=== PATIENT | female | born 1945 | race Caucasian/White ===

== ENCOUNTER 2023-07-02 11:28 | Inpatient (IN) | payer OTHER, MEDICAID ==
[~2023-07-02] VITALS: Ht 157.5 cm; Wt 59.0 kg
[2023-07-02 11:35] VITALS: BP_SYST 92; PULSE 58; RESP 18; O2SAT 100
[2023-07-02 12:05] LABS: BASOPHILS # (AUTO) 0.1 K/uL (0.0-0.2); BASOPHILS % (AUTO) 0.7 % (0.0-2.0); EOSINOPHILS % (AUTO) 0.6 % (0.0-4.0); HEMATOCRIT 26.9 % (36-48); HEMOGLOBIN 9.2 g/dL (12.0-16.0); LYMPHOCYTES % (AUTO) 25.6 % (20.5-51.5); MEAN CORPUSCULAR HEMOGLOBIN 31 pg (27-31); MEAN CORPUSCULAR HGB CONC 34 % (32-36); MEAN CORPUSCULAR VOLUME 92 fL (79.0-98.0); MONOCYTES # (AUTO) 0.6 K/uL (0.0-1.0); MONOCYTES % (AUTO) 7.4 % (1.7-9.3); NEUTROPHILS # (AUTO) 5.2 K/uL (1.8-7.7); NEUTROPHILS % (AUTO) 65.7 % (40.0-70.0); PLATELET COUNT (AUTO) 210 K/uL (130-430); RED BLOOD CELL COUNT(AUTO) 2.92 MIL/uL (4.2-6.2); RED CELL DISTRIBUTION WIDTH 13.5 % (9.0-15.0)
[2023-07-02 12:25] LABS: ALANINE AMINOTRANSFERASE 18 U/L (12-78); ALBUMIN 2.3 g/dL (3.4-4.8); ANION GAP 11 (5-15); ASPARTATE AMINOTRANSFERASE 18 U/L (10-37); BILIRUBIN,DIRECT 0.2 mg/dL (0.0-0.3); CALCIUM 7.8 mg/dL (8.4-11.0); CARBON DIOXIDE 22 mmol/L (23-29); CHLORIDE 103 mmol/L (98-107); CREATININE 2.42 mg/dL (0.55-1.30); POTASSIUM 4.8 mmol/L (3.5-5.1); SODIUM SERUM 136 mmol/L (136-145); TOTAL BILIRUBIN 0.6 mg/dL (0.0-1.0); TOTAL PROTEIN, SERUM 5.4 g/dL (6.4-8.3); UREA NITROGEN, BLOOD 53 mg/dL (8-21)
[2023-07-02 12:29] LABS: GLUCOSE 504 mg/dL (74-106)
[2023-07-02] MEDS: INSULIN REGULAR, HUMAN 10 UNITS/0.1 ML, 3 ML VIAL IVP ONE (13:03)
[2023-07-02] MEDS: NACL 0.9% 1,000 ML IV ONE (13:58)
[2023-07-02] MEDS ORDERED: REPA2TAB12 PO (15:30)
[2023-07-02] MEDS ORDERED: VERA240C2 PO (15:30)
[2023-07-02] MEDS ORDERED: POTA8TAB58 PO (15:30)
[2023-07-02] MEDS ORDERED: FURO40TA5 PO (15:30)
[2023-07-02] MEDS ORDERED: FAMO20TA8 PO (15:51)
[2023-07-02] MEDS ORDERED: APIX5TAB PO (15:51)
[2023-07-02] MEDS ORDERED: ERGO500020 PO (15:51)
[2023-07-02] MEDS ORDERED: ROSU5TAB13 PO (15:51)
[2023-07-02] MEDS ORDERED: FERR325T30 PO (15:51)
[2023-07-02] MEDS ORDERED: LEVO150C4 PO (15:51)
[2023-07-02] MEDS ORDERED: ACET1TAB93 PO (15:51)
[2023-07-02] MEDS ORDERED: PREG75CA PO (15:51)
[2023-07-02] MEDS ORDERED: METF1000 PO (15:51)
[2023-07-02] MEDS ORDERED: ENAL20TA70 PO (15:51)
[2023-07-02] MEDS ORDERED: MUPIROCIN 2% TOPICAL OINTMENT 22 GM NS PRN (16:00)
[2023-07-02] MEDS ORDERED: ONDANSETRON HCL 4 MG/2 ML VIAL IVP PRN (16:00)
[2023-07-02] MEDS ORDERED: MORPHINE 2 MG/ML INJ. SYRINGE IVP PRN ×2 (16:00)
[2023-07-02] MEDS ORDERED: INSULIN LISPRO SLIDING SCALE 100 UNITS/ML, 3 ML VIAL (humaLOG) SUBCUT PRN (16:00)
[2023-07-02] MEDS ORDERED: DEXTROSE 50% JECT 50 ML DISP.SYRIN IVP PRN (16:00)
[2023-07-02] MEDS ORDERED: MAGNESIUM SULFATE 50 ML IV PRN (16:00)
[2023-07-02] MEDS ORDERED: DOCUSATE SODIUM 100 MG CAPSULE PO PRN (16:00)
[2023-07-02] MEDS ORDERED: ZOLPIDEM TARTRATE 5 MG TABLET PO PRN (16:00)
[2023-07-02] MEDS ORDERED: LORazepam 2 MG/ML VIAL IVP PRN (16:00)
[2023-07-02] MEDS ORDERED: INSULIN REGULAR, HUMAN 100 UNITS/ML, 3 ML VIAL (humuLIN R) SUBCUT PRN (16:00)
[2023-07-02] MEDS: FUROSEMIDE 20 MG TABLET PO ONE (16:15)
[2023-07-02] MEDS: NACL 0.9% 1,000 ML IV SCH ×2 (16:27→20:29)
[2023-07-02] MEDS ORDERED: cefTRIAXone 1 GM VIAL IM ONE (18:00)
[2023-07-02 18:02] LABS: ABG O2 SAT% ESTIMATE 98.8 % (94.0-100.0); BLOOD GAS BASE EXCESS -2.4 mmol/L (-3.0-3.0); BLOOD GAS HCO3 22.1 mmol/L (21.0-27.0); BLOOD GAS PCO2 37.4 mmHg (35.0-45.0); BLOOD GAS PH 7.389 (7.350-7.450); BLOOD GAS PO2 144.4 mmHg (75.0-100.0)
[2023-07-02] MEDS ORDERED: ACETAMINOPHEN 500 MG TABLET PO PRN ×3 (18:45)
[2023-07-02] MEDS: NALOXONE HCL 0.4 MG/ML AMP (NARCAN) IVP ONE ×2 (18:51→19:08)
[2023-07-02] MEDS ORDERED: cefTRIAXone 1 GM VIAL ONE (19:11)
[2023-07-02] MEDS: CEFTRIAXONE SOD 1 GM/ D5W 50 ML IV ONE (19:14)
[2023-07-02 20:00] LABS: BILIRUBIN,URINE NEGATIVE (NEGATIVE); BLOOD, URINE NEGATIVE (NEGATIVE); COLOR,URINE YELLOW (YELLOW); GLUCOSE,URINE 3+ (NEGATIVE); KETONES,URINE NEGATIVE (NEGATIVE); LEUKOCYTE ESTERASE ,URINE 2+ (NEGATIVE); NITRITE, URINE NEGATIVE (NEGATIVE); PROTEIN URINE NEGATIVE (NEGATIVE); UROBILINOGEN,URINE 0.2 (0.2-1.0)
[2023-07-02 20:08] LABS: CLARITY/URINE HAZY (CLEAR)
[2023-07-02 20:09] LABS: BACTERIA,URINE MODERATE /HPF (None Seen); RBC,URINE 0-3 /HPF (0-3); WBC,URINE 20-50 /HPF (0-3)
[2023-07-02] MEDS: INSULIN GLARGINE 100 UNITS/ML, 10 ML VIAL SUBCUT SCH (20:56)
[2023-07-02] MEDS: PREGABALIN 75 MG CAPSULE (LYRICA) PO SCH (20:58)
[2023-07-03] MEDS: LEVOTHYROXINE SODIUM 0.15 MG TABLET PO SCH (06:40)
[2023-07-03] MEDS: LEVOTHYROXINE SODIUM 0.15 MG TABLET ONE (07:10)
[2023-07-03] MEDS: APIXABAN 2.5 MG TABLET PO SCH (08:52)
[2023-07-03] MEDS: FUROSEMIDE 40 MG TABLET PO SCH (08:53)
[2023-07-03] MEDS: lisinopriL 20 MG TABLET PO SCH (08:53)
[2023-07-03] MEDS: ATORVASTATIN 20 MG TABLET PO SCH (08:53)
[2023-07-03] MEDS ORDERED: ROSUVASTATIN CALCIUM 5 MG/TAB (CRESTOR) PO SCH (09:00)
[2023-07-03] MEDS ORDERED: NON-FORMULARY MEDICATION (Levothyroxine Sodium (Levothyroxine) 1 TAB) PO SCH (09:00)
[2023-07-03] MEDS ORDERED: NON-FORMULARY MEDICATION (Apixaban (Eliquis) 1 TAB) PO SCH (09:00)
[2023-07-03] MEDS ORDERED: ENALAPRIL MALEATE Non-Formular 5 MG TABLET PO SCH (09:00)
[2023-07-03] MEDS: INSULIN REGULAR, HUMAN 100 UNITS/ML, 3 ML VIAL (humuLIN R) SUBCUT PRN (12:15)
[2023-07-03] MEDS ORDERED: NALOXONE HCL 0.4 MG/ML AMP (NARCAN) IVP PRN (15:15)
[2023-07-03] MEDS ORDERED: NON-FORMULARY MEDICATION (Ergocalciferol (Vitamin D2) (Vitamin D2) 1 CAP) PO SCH (15:15)
[2023-07-03] MEDS: cefTRIAXone 1 GM IVPB PREMIX 50 ML IV SCH (18:40)
[2023-07-03 20:15] VITALS: BP_SYST 144; PULSE 101; RESP 16; TEMP 98.8
[2023-07-03 20:20] VITALS: BP_SYST 144; PULSE 101; RESP 16; TEMP 98.8
[2023-07-03] MEDS: ACETAMINOPHEN/CODEINE 300 MG-30 MG TABLET PO SCH (23:06)
[2023-07-04 07:09] LABS: ANION GAP 10 (5-15); CALCIUM 9.2 mg/dL (8.4-11.0); CARBON DIOXIDE 26 mmol/L (23-29); CHLORIDE 105 mmol/L (98-107); CREATININE 0.86 mg/dL (0.55-1.30); GLUCOSE 277 mg/dL (74-106); SODIUM SERUM 141 mmol/L (136-145); UREA NITROGEN, BLOOD 20 mg/dL (8-21)
[2023-07-04 07:16] LABS: BASOPHILS % (AUTO) 0.5 % (0.0-2.0); EOSINOPHILS # (AUTO) 0.1 K/uL (0.0-0.4); EOSINOPHILS % (AUTO) 1.3 % (0.0-4.0); HEMOGLOBIN 10.9 g/dL (12.0-16.0); LYMPHOCYTES # (AUTO) 1.5 K/uL (1.0-5.5); LYMPHOCYTES % (AUTO) 24.6 % (20.5-51.5); MEAN CORPUSCULAR HEMOGLOBIN 32 pg (27-31); MEAN CORPUSCULAR HGB CONC 35 % (32-36); MEAN CORPUSCULAR VOLUME 90 fL (79.0-98.0); MONOCYTES # (AUTO) 0.5 K/uL (0.0-1.0); MONOCYTES % (AUTO) 7.8 % (1.7-9.3); NEUTROPHILS # (AUTO) 4.1 K/uL (1.8-7.7); NEUTROPHILS % (AUTO) 65.8 % (40.0-70.0); PLATELET COUNT (AUTO) 223 K/uL (130-430); RED BLOOD CELL COUNT(AUTO) 3.47 MIL/uL (4.2-6.2); RED CELL DISTRIBUTION WIDTH 13.1 % (9.0-15.0); WHITE BLOOD COUNT (AUTO) 6.2 K/uL (4.8-10.8)
[2023-07-04] MEDS: FAMOTIDINE 20 MG TABLET PO SCH (08:40)
[2023-07-04] MEDS: POTASSIUM CHLORIDE 20 MEQ TABLET.ER PO PRN (08:40)
[2023-07-04 11:09] VITALS: BP_SYST 140; PULSE 108; RESP 16; TEMP 98.3; O2SAT 93
[2023-07-04] MEDS: INSULIN REGULAR, HUMAN 100 UNITS/ML, 3 ML VIAL SUBCUT SCH (11:57)
[2023-07-04 15:24] VITALS: BP_SYST 165; PULSE 105; RESP 16; TEMP 97.3; O2SAT 98
[2023-07-04 20:49] VITALS: BP_SYST 188; PULSE 127; RESP 20; TEMP 99.7; O2SAT 97
[2023-07-04] MEDS: DIPHENHYDRAMINE HCL 12.5 MG/5 ML UDC PO SCH (21:41)
[2023-07-04] MEDS: INSULIN GLARGINE 100 UNITS/ML, 10 ML VIAL SUBCUT SCH (23:06)
[2023-07-05] MEDS ORDERED: cloNIDine HCL 0.1 MG TABLET PO PRN
[2023-07-05 01:42] VITALS: BP_SYST 158; PULSE 101; RESP 20; TEMP 99; O2SAT 97
[2023-07-05 08:14] LABS: BASOPHILS % (AUTO) 0.5 % (0.0-2.0); EOSINOPHILS # (AUTO) 0.1 K/uL (0.0-0.4); EOSINOPHILS % (AUTO) 2.3 % (0.0-4.0); HEMATOCRIT 27.6 % (36-48); HEMOGLOBIN 9.7 g/dL (12.0-16.0); LYMPHOCYTES # (AUTO) 1.6 K/uL (1.0-5.5); LYMPHOCYTES % (AUTO) 25.9 % (20.5-51.5); MEAN CORPUSCULAR HEMOGLOBIN 31 pg (27-31); MEAN CORPUSCULAR HGB CONC 35 % (32-36); MEAN CORPUSCULAR VOLUME 89 fL (79.0-98.0); MONOCYTES # (AUTO) 0.6 K/uL (0.0-1.0); MONOCYTES % (AUTO) 9.5 % (1.7-9.3); NEUTROPHILS # (AUTO) 3.9 K/uL (1.8-7.7); NEUTROPHILS % (AUTO) 61.8 % (40.0-70.0); PLATELET COUNT (AUTO) 215 K/uL (130-430); RED BLOOD CELL COUNT(AUTO) 3.12 MIL/uL (4.2-6.2); RED CELL DISTRIBUTION WIDTH 13.3 % (9.0-15.0); WHITE BLOOD COUNT (AUTO) 6.3 K/uL (4.8-10.8)
[2023-07-05] MEDS: MODAFINIL 100 MG TABLET (PROVIGIL) PO SCH (08:31)
[2023-07-05 08:32] LABS: ANION GAP 8 (5-15); CALCIUM 8.6 mg/dL (8.4-11.0); CARBON DIOXIDE 28 mmol/L (23-29); CHLORIDE 103 mmol/L (98-107); CREATININE 0.74 mg/dL (0.55-1.30); GLUCOSE 277 mg/dL (74-106); SODIUM SERUM 139 mmol/L (136-145); UREA NITROGEN, BLOOD 12 mg/dL (8-21)
[2023-07-05] MEDS: NIFEdipine 30 MG TAB.ER.24 PO ONE (09:45)
[2023-07-05] MEDS ORDERED: LEVO250T73 PO (11:05)
[2023-07-05] MEDS ORDERED: MODA100T31 PO (11:05)
[2023-07-05] MEDS ORDERED: NIFE-129 PO (11:14)
[2023-07-05] MEDS ORDERED: INSU100I52 SQ (11:20)
[2023-07-05] MEDS ORDERED: INSU100V9 SQ (11:20)
[2023-07-05 11:21] VITALS: BP_SYST 134; PULSE 107; RESP 16; TEMP 98; O2SAT 96
[2023-07-05 13:13] VITALS: BP_SYST 130; PULSE 80; RESP 20; TEMP 97.3; O2SAT 98
[2023-07-06] MEDS ORDERED: NIFEdipine 30 MG TAB.ER.24 PO SCH (09:00)
== END 2023-07-05 13:50 | disposition home health service (06) | DRG 638 ==
LOC: SED 11:28 → SIC 18:25 → STU 07-03 20:07
PROVIDERS: ADMIT Specialist; ATTEND Specialist
DX: E11.65 Type 2 diabetes mellitus with hyperglycemia (principal); E44.0 Moderate protein-calorie malnutrition; N39.0 Urinary tract infection, site not specified; I10 Essential (primary) hypertension; Z79.899 Other long term (current) drug therapy; Z79.01 Long term (current) use of anticoagulants; I95.9 Hypotension, unspecified; Z68.23 Body mass index [BMI] 23.0-23.9, adult
CPT/HCPCS: 36415; 36600; 70450-TC; 71045; 72170-TC; 72192-TC; 76376; 80048; 80076; 81000; 81001; 81015; 82803; 82962; 83037; 83880; 84484; 85025; 87040; 87081; 87086; 93005; 93971; 97116-GP; 97530-GP; 99285; G0378; J0696; J1815; J2310